=== PATIENT | male | born 1960 | race Caucasian/White ===

== ENCOUNTER 2016-04-03 09:17 | Emergency (ER) | payer MEDICARE, MEDICAID ==
[~2016-04-03] VITALS: Ht 182.9 cm; Wt 72.7 kg
[2016-04-03 09:19] VITALS: TEMP 100.4
[2016-04-03 10:23] LABS: MEAN CELL VOLUME 88 fl (80.0-100.0); MEAN CORPUSCULAR HGB CONC 34 g/dl (33.0-37.0); MEAN PLATELET VOLUME 11.8 fl (7.4-10.4); PLATELET COUNT 154 K/mm3 (130-400); RED BLOOD COUNT 3.53 M/mm3 (4.20-5.60); REDCELL DISTRIBUTION WIDTH-CV 13.7 % (11.5-14.5); WHITE BLOOD COUNT 10.3 K/mm3 (4.8-10.8)
[2016-04-03 10:25] LABS: ADD PATHOLOGY DIFF REVIEW NO; HEMATOCRIT 30.9 % (42.0-52.0); HEMOGLOBIN 10.6 g/dl (13.5-18.0); MEAN CORPUSCULAR HEMOGLOBIN 30 pg (27.0-31.0)
[2016-04-03 10:28] LABS: ADJUSTED CALCIUM 9.4 mg/dL (8.4-10.2); ALBUMIN 3.6 gm/dL (3.5-5.0); BILIRUBIN,TOTAL 0.9 mg/dL (0.0-1.0); CALCIUM 9.1 mg/dL (8.4-10.2); CREATININE, serum 0.79 mg/dL (0.66-1.25); POTASSIUM 3.7 mmol/L (3.4-5.0); TOTAL PROTEIN 6.8 gm/dL (6.4-8.2)
[2016-04-03 10:34] LABS: BAND 17 % (0-10); METAMYELOCYTE 1 % (0-0); NEUTROPHILS 70 % (42.0-75.2); PLATELET ESTIMATE NORMAL (NORMAL); TOTAL CELLS COUNTED 100
[2016-04-03 11:24] LABS: INFLUENZA B NEGATIVE
[2016-04-03] MEDS ORDERED: PROTONIX 40MG T40 MG PO (11:55)
[2016-04-03] MEDS ORDERED: PROZAC 20MG20 MG PO (11:55)
[2016-04-03] MEDS ORDERED: CALCIUM CITRATE1 TA4 PO (11:56)
[2016-04-03] MEDS ORDERED: ZANTAC 150MG T150 MG PO (11:58)
[2016-04-03] MEDS ORDERED: FERROUS SULFATE65 MG PO (11:59)
[2016-04-03] MEDS ORDERED: SEROQUEL 200MG200 MG PO (11:59)
[2016-04-03] MEDS ORDERED: COGENTIN 1MG1 MG/TAB PO (12:00)
[2016-04-03] MEDS ORDERED: REGLAN 5MG T5 MG/TAB (12:01)
[2016-04-03] MEDS ORDERED: SEROQUEL400 MG PO (12:02)
[2016-04-03] MEDS ORDERED: LIPITOR 80MG80 MG PO (12:03)
[2016-04-03] MEDS ORDERED: RISPERDAL 1M1 MG/TAB PO (12:04)
[2016-04-03] MEDS ORDERED: COLACE 100100 MG/CAP PO (12:05)
[2016-04-03 13:46] LABS: PH 6 (5-8); SQUAMOUS EPITHELIAL None Seen /hpf; URINE APPEARANCE Hazy; URINE BACTERIA Rare /hpf; URINE BILIRUBIN Negative (NEGATIVE); URINE BLOOD Negative (NEGATIVE); URINE COLOR Yellow; URINE GLUCOSE 1+ (NEGATIVE); URINE KETONE Trace (NEGATIVE); URINE UROBILINOGEN Negative (NEGATIVE)
[2016-04-03] MEDS ORDERED: AMOXICILLIN 8751 TAB PO (15:26)
[2016-04-03 16:03] VITALS: BP 104/70; PULSE 98
== END 2016-04-03 16:04 | disposition home or self-care (01) ==
LOC: COL.ER 09:17
PROVIDERS: Nurse Practitioner
DX: Z02.89 Encounter for other administrative examinations (principal)
CPT/HCPCS: J7030; L1830

== ENCOUNTER 2016-04-04 13:54 | Inpatient (IN) | payer MEDICARE, MEDICAID ==
[~2016-04-04] VITALS: Ht 182.9 cm; Wt 76.7 kg
[~2016-04-04 13:54] MED LIST: AMOXICILLIN 8751 TAB PO; CALCIUM CITRATE1 TA4 PO; COGENTIN 1MG1 MG/TAB PO; COLACE 100100 MG/CAP PO; FERROUS SULFATE65 MG PO; LIPITOR 80MG80 MG PO; PROTONIX 40MG T40 MG PO; PROZAC 20MG20 MG PO; REGLAN 5MG T5 MG/TAB; RISPERDAL 1M1 MG/TAB PO; SEROQUEL 200MG200 MG PO; SEROQUEL400 MG PO; ZANTAC 150MG T150 MG PO
[2016-04-04 14:33] LABS: BASO % 0.3 % (0.0-2.0); GRAN # 8.3 (1.4-6.5); GRAN % 75.2 % (42.2-75.2); LYMPH # 0.8 (1.2-3.4); LYMPH % 7.2 % (20.0-51.0); MEAN CELL VOLUME 89 fl (80.0-100.0); MEAN CORPUSCULAR HGB CONC 34 g/dl (33.0-37.0); MEAN PLATELET VOLUME 11.8 fl (7.4-10.4); MONO # 1.9 (0.1-0.6); MONO % 16.9 % (1.7-9.3); PLATELET COUNT 148 K/mm3 (130-400); RED BLOOD COUNT 3.11 M/mm3 (4.20-5.60); REDCELL DISTRIBUTION WIDTH-CV 13.6 % (11.5-14.5)
[2016-04-04 14:49] LABS: HEMATOCRIT 27.6 % (42.0-52.0); HEMOGLOBIN 9.5 g/dl (13.5-18.0); MEAN CORPUSCULAR HEMOGLOBIN 31 pg (27.0-31.0)
[2016-04-04 14:52] LABS: ALBUMIN 3.3 gm/dL (3.5-5.0); CALCIUM 8.4 mg/dL (8.4-10.2); CREATININE, serum 0.95 mg/dL (0.66-1.25); POTASSIUM 3.3 mmol/L (3.4-5.0); TOTAL PROTEIN 6.4 gm/dL (6.4-8.2)
[2016-04-04 15:22] LABS: INFLUENZA B NEGATIVE
[2016-04-04 19:11] LABS: C-REACTIVE PROTEIN 19.2 mg/dL (0.0-0.9)
[2016-04-04 19:22] LABS: ERYTHROCYTE SEDIMENTATION RATE 30 mm/hr (0-30)
[2016-04-04 20:00] VITALS: BP 132/90; PULSE 84; TEMP 99.8
[2016-04-04 21:41] VITALS: BP 128/78; PULSE 83; TEMP 99.9
[2016-04-04 21:54] LABS: PH 6 (5-8); SQUAMOUS EPITHELIAL None Seen /hpf; URINE APPEARANCE Clear; URINE BACTERIA None Seen /hpf; URINE BILIRUBIN Negative (NEGATIVE); URINE BLOOD Negative (NEGATIVE); URINE COLOR Yellow; URINE GLUCOSE Negative (NEGATIVE); URINE KETONE 1+ (NEGATIVE); URINE RBC 0-2 /hpf; URINE UROBILINOGEN Negative (NEGATIVE); URINE WBC 0-2 /hpf
[2016-04-05] VITALS: BP 134/84; PULSE 96; TEMP 99.2
[2016-04-05 04:00] VITALS: BP 140/83; PULSE 86; TEMP 100.4
[2016-04-05 06:09] LABS: BASO % 0.2 % (0.0-2.0); GRAN # 7.5 (1.4-6.5); GRAN % 75.6 % (42.2-75.2); LYMPH # 0.8 (1.2-3.4); LYMPH % 7.8 % (20.0-51.0); MEAN CELL VOLUME 89 fl (80.0-100.0); MEAN CORPUSCULAR HGB CONC 34 g/dl (33.0-37.0); MEAN PLATELET VOLUME 11.7 fl (7.4-10.4); MONO # 1.6 (0.1-0.6); PLATELET COUNT 150 K/mm3 (130-400); RED BLOOD COUNT 3.12 M/mm3 (4.20-5.60); REDCELL DISTRIBUTION WIDTH-CV 13.4 % (11.5-14.5)
[2016-04-05 06:16] LABS: HEMATOCRIT 27.8 % (42.0-52.0); HEMOGLOBIN 9.3 g/dl (13.5-18.0); MEAN CORPUSCULAR HEMOGLOBIN 30 pg (27.0-31.0)
[2016-04-05 06:25] LABS: CALCIUM 7.3 mg/dL (8.4-10.2); CREATININE, serum 0.62 mg/dL (0.66-1.25); POTASSIUM 3.1 mmol/L (3.4-5.0)
[2016-04-05 07:33] VITALS: BP 114/84; PULSE 84; TEMP 99.2
[2016-04-05 12:16] VITALS: BP 122/74; PULSE 88; TEMP 100.7
[2016-04-05 15:54] VITALS: BP 135/74; PULSE 93; TEMP 100.4
[2016-04-05 20:32] VITALS: BP 117/68; PULSE 96; TEMP 97.5
[2016-04-06] VITALS (7 sets, daily range): BP systolic 87–130; BP diastolic 52–94; PULSE 82–170; TEMP 99–102.2
[2016-04-06 04:40] LABS: BASO % 0.2 % (0.0-2.0); EOS % 0.4 % (0-4.0); GRAN # 5.6 (1.4-6.5); HEMATOCRIT 26.8 % (42.0-52.0); HEMOGLOBIN 9.2 g/dl (13.5-18.0); MEAN CELL VOLUME 88 fl (80.0-100.0); MEAN CORPUSCULAR HEMOGLOBIN 30 pg (27.0-31.0); MEAN CORPUSCULAR HGB CONC 34 g/dl (33.0-37.0); MEAN PLATELET VOLUME 11.4 fl (7.4-10.4); MONO # 1.5 (0.1-0.6); PLATELET COUNT 152 K/mm3 (130-400); RED BLOOD COUNT 3.05 M/mm3 (4.20-5.60); WHITE BLOOD COUNT 8.1 K/mm3 (4.8-10.8)
[2016-04-06 04:51] LABS: ADJUSTED CALCIUM 8.2 mg/dL (8.4-10.2); ALBUMIN 2.5 gm/dL (3.5-5.0); BILIRUBIN,TOTAL 0.9 mg/dL (0.0-1.0); CREATININE, serum 0.53 mg/dL (0.66-1.25)
[2016-04-06 04:57] LABS: VANCOMYCIN TROUGH 9.32 ug/mL (7.00-20.00)
[2016-04-06 04:59] LABS: POTASSIUM 2.7 mmol/L (3.4-5.0)
[2016-04-06 06:40] LABS: MAGNESIUM 1.6 mg/dL (1.6-2.3)
[2016-04-06 23:11] LABS: PH 6 (5-8); SQUAMOUS EPITHELIAL None Seen /hpf; URINE APPEARANCE Cloudy; URINE BACTERIA None Seen /hpf; URINE BILIRUBIN Negative (NEGATIVE); URINE BLOOD 3+ (NEGATIVE); URINE COLOR Red; URINE GLUCOSE Negative (NEGATIVE); URINE KETONE 1+ (NEGATIVE); URINE RBC >50 /hpf; URINE UROBILINOGEN Negative (NEGATIVE); URINE WBC 20-50 /hpf
[2016-04-07 00:40] VITALS: BP 116/58; PULSE 101; TEMP 99.8
[2016-04-07 03:27] VITALS: BP 132/65; PULSE 83; TEMP 97.6
[2016-04-07 07:53] LABS: BASO % 0.3 % (0.0-2.0); EOS # 0.1 (0.0-0.7); EOS % 1.4 % (0-4.0); GRAN # 4.5 (1.4-6.5); GRAN % 64.6 % (42.2-75.2); LYMPH # 1.1 (1.2-3.4); LYMPH % 15.2 % (20.0-51.0); MEAN CELL VOLUME 89 fl (80.0-100.0); MEAN CORPUSCULAR HGB CONC 33 g/dl (33.0-37.0); MEAN PLATELET VOLUME 11.6 fl (7.4-10.4); MONO # 1.3 (0.1-0.6); MONO % 18.1 % (1.7-9.3); PLATELET COUNT 208 K/mm3 (130-400); RED BLOOD COUNT 3.18 M/mm3 (4.20-5.60)
[2016-04-07 07:57] LABS: HEMATOCRIT 28.2 % (42.0-52.0); HEMOGLOBIN 9.4 g/dl (13.5-18.0); MEAN CORPUSCULAR HEMOGLOBIN 30 pg (27.0-31.0)
[2016-04-07 08:00] VITALS: BP 100/63; PULSE 19; TEMP 103
[2016-04-07 08:10] LABS: ADJUSTED CALCIUM 8.2 mg/dL (8.4-10.2); ALBUMIN 2.7 gm/dL (3.5-5.0); BILIRUBIN,TOTAL 0.8 mg/dL (0.0-1.0); CALCIUM 7.2 mg/dL (8.4-10.2); CREATININE, serum 0.7 mg/dL (0.66-1.25); MAGNESIUM 2.2 mg/dL (1.6-2.3); PHOSPHOROUS 2.1 mg/dL (2.5-4.5); POTASSIUM 3.5 mmol/L (3.4-5.0); TOTAL PROTEIN 5.6 gm/dL (6.4-8.2)
[2016-04-07 12:19] VITALS: BP 134/86; PULSE 100; TEMP 99.3
[2016-04-07 15:50] VITALS: BP 100/76; BP 106/76; PULSE 64; TEMP 98.7
[2016-04-07 20:44] VITALS: BP 126/78; PULSE 92; TEMP 98.5
[2016-04-08 00:37] VITALS: BP 139/75; PULSE 89; TEMP 99
[2016-04-08 04:20] VITALS: BP 123/90; PULSE 80; TEMP 98.3
[2016-04-08 07:09] LABS: MEAN CELL VOLUME 89 fl (80.0-100.0); MEAN CORPUSCULAR HGB CONC 33 g/dl (33.0-37.0); MEAN PLATELET VOLUME 11.1 fl (7.4-10.4); PLATELET COUNT 245 K/mm3 (130-400); RED BLOOD COUNT 3.05 M/mm3 (4.20-5.60); REDCELL DISTRIBUTION WIDTH-CV 13.2 % (11.5-14.5); WHITE BLOOD COUNT 6.7 K/mm3 (4.8-10.8)
[2016-04-08 07:26] LABS: CALCIUM 7.2 mg/dL (8.4-10.2); CREATININE, serum 0.6 mg/dL (0.66-1.25); POTASSIUM 3.5 mmol/L (3.4-5.0)
[2016-04-08 07:55] LABS: HEMATOCRIT 27.2 % (42.0-52.0); MEAN CORPUSCULAR HEMOGLOBIN 30 pg (27.0-31.0)
[2016-04-08 08:21] VITALS: BP 156/82; PULSE 90; TEMP 98
[2016-04-08 12:00] VITALS: BP 117/69; PULSE 74; TEMP 98.5
[2016-04-08] MEDS ORDERED: DOXYCYCLINE 10100 MG PO (14:19)
[2016-04-08] MEDS ORDERED: SEROQUEL 1100 MG/TAB PO ×2 (14:20→14:21)
[2016-04-08] MEDS ORDERED: RISPERDAL 0.5M0.5 MG PO (14:20)
[2016-04-08] MEDS ORDERED: TYLENOL 325MG325 MG PO (14:21)
[2016-04-08] MEDS ORDERED: SEROQUEL50 MG PO (14:21)
[2016-04-08] MEDS ORDERED: CEFTIN 250250 MG/TAB PO (14:25)
[2016-04-08] MEDS ORDERED: ASPIRIN 81M81 MG/TA2 PO (14:29)
== END 2016-04-08 15:45 | disposition home or self-care (01) | DRG 872 ==
LOC: COL.ER 13:54 → ICU 16:08 → COL.ER 16:08 → ICU 16:08 → MEDICAL 04-05 10:23 → ICU 04-06 05:19 → MEDICAL 04-06 13:50
PROVIDERS: Emergency Medicine; Internal Medicine; Nurse Practitioner Family
DX: A41.9 Sepsis, unspecified organism (principal); E87.1 Hypo-osmolality and hyponatremia; N39.0 Urinary tract infection, site not specified; L03.116 Cellulitis of left lower limb; M80.062A Age-related osteoporosis with current pathological fracture, left lower leg, initial encounter for fracture; F05 Delirium due to known physiological condition; R65.20 Severe sepsis without septic shock; E87.6 Hypokalemia; I48.91 Unspecified atrial fibrillation; F79 Unspecified intellectual disabilities; I10 Essential (primary) hypertension; F20.9 Schizophrenia, unspecified; F32.9 Major depressive disorder, single episode, unspecified
CPT/HCPCS: 90791-AI; 99223-AI; 99232-AI; 99233-AI; 99239; A4315; J0692; J0696; J1630; J1650; J1940; J1956; J3370; J3475; J3480; J7030; J7040; J7050; L1830

== ENCOUNTER 2016-10-22 08:49 | Day surgery (SDC) | payer MEDICARE, MEDICAID ==
[~2016-10-22] VITALS: Ht 188 cm; Wt 69.6 kg
[~2016-10-22 08:49] MED LIST changes: +ASPIRIN 81M81 MG/TA2 PO; +CEFTIN 250250 MG/TAB PO; +DOXYCYCLINE 10100 MG PO; +RISPERDAL 0.5M0.5 MG PO; +SEROQUEL 1100 MG/TAB PO; +SEROQUEL50 MG PO; +TYLENOL 325MG325 MG PO
[2016-10-22] MEDS ORDERED: PROLIA60 MG/ML SQ (09:19)
[2016-10-22 09:34] VITALS: BP 167/71; PULSE 85; TEMP 99.3
[2016-10-22 10:55] VITALS: BP 106/82; PULSE 61; TEMP 97.4
--- NOTE | 2016-10-22 10:55 | NUR ---
Pt. returned to [facility] via cart accompanied by roxane PADGETT. Pt. remained in cart rather than transferring to chair. Julio Sun RN and pt's sister in room. Pt. is drowsy but arouses to voice and answers questions. Pt. requests juice to drink, tolerating well. Denies pain/nausea/further needs. Call larsen within reach.
[2016-10-22 11:10] VITALS: BP 112/95; PULSE 61
--- NOTE | 2016-10-22 11:10 | NUR ---
Pt. continues to rest on cart with Julio Sun RN and sister at bedside. Pt. requests muffin to eat, tolerating PO intake well. Denies nausea/pain/needs. Call larsen within reach.
[2016-10-22 11:25] VITALS: BP 145/96; PULSE 61
--- NOTE | 2016-10-22 11:25 | NUR ---
Pt. continues to rest on cart with Julio Sun RN at bedside. Pt. states he is ready to go home. IV discontinued at this time with tip intact. Dressing applied, pt. tolerated procedure well. Pt. assisted to dress by Majo Cooper RN. Discharge instructions provided, DAYRON Kasper voiced understanding. DAYRON Kasper signed discharge instructions on pt's behalf. Pt. discharged via wheelchair, accompanied by this RN. Pt. assisted into vehicle by DAYRON Kasper.
[2016-10-22 15:00] VITALS: BP 125/83; PULSE 63
== END 2016-10-22 12:18 | disposition home or self-care (01) ==
LOC: SDCO 08:49
DX: K22.2 Esophageal obstruction (principal); D13.1 Benign neoplasm of stomach; K21.0 Gastro-esophageal reflux disease with esophagitis; K44.9 Diaphragmatic hernia without obstruction or gangrene; F20.9 Schizophrenia, unspecified; I10 Essential (primary) hypertension; I48.91 Unspecified atrial fibrillation; M81.0 Age-related osteoporosis without current pathological fracture; F79 Unspecified intellectual disabilities; F32.9 Major depressive disorder, single episode, unspecified; D64.9 Anemia, unspecified; F41.9 Anxiety disorder, unspecified
CPT/HCPCS: OP; C1726; J2250; J2704; J7030

== ENCOUNTER 2020-03-02 10:58 | Observation (INO) | payer MEDICARE, MEDICAID ==
[~2020-03-02] VITALS: Ht 180.3 cm; Wt 65.5 kg
[~2020-03-02 10:58] MED LIST changes: +PROLIA60 MG/ML SQ
[2020-03-02 12:01] LABS: BASO % 0.2 % (0.0-2.0); EOS % 0.2 % (0-4.0); GRAN # 3.9 (1.4-6.5); GRAN % 73.2 % (42.2-75.2); HEMATOCRIT 39.7 % (42.0-52.0); LYMPH % 18.3 % (20.0-51.0); MEAN CELL VOLUME 94 fl (80.0-100.0); MEAN CORPUSCULAR HEMOGLOBIN 31 pg (27.0-31.0); MEAN CORPUSCULAR HGB CONC 33 g/dl (33.0-37.0); MEAN PLATELET VOLUME 12.7 fl (7.4-10.4); MONO # 0.4 (0.1-0.6); MONO % 7.9 % (1.7-9.3); PLATELET COUNT 152 K/mm3 (130-400); RED BLOOD COUNT 4.22 M/mm3 (4.20-5.60); REDCELL DISTRIBUTION WIDTH-CV 13.1 % (11.5-14.5)
[2020-03-02 12:12] LABS: ALANINE AMINOTRANSFERASE 16 U/L (4-49); ALBUMIN 4.5 gm/dL (3.5-5.0); ALKALINE PHOSPHATASE 60 U/L (50-136); ANION GAP 9 mmol/L (7-16); AST,SGOT 19 U/L (15-37); BILIRUBIN,TOTAL 0.9 mg/dL (0.0-1.0); BLOOD UREA NITROGEN 35 mg/dL (9-20); CALCIUM 10.4 mg/dL (8.4-10.2); CARBON DIOXIDE 37 mmol/L (22-30); CHLORIDE 101 mmol/L (98-107); CREATININE, serum 0.97 (0.66-1.25); GLUCOSE 116 mg/dL (74-106); LIPASE 84 U/L (23-300); POTASSIUM 3.6 mmol/L (3.4-5.0); SODIUM 147 mmol/L (137-145); TOTAL PROTEIN 7.7 gm/dL (6.4-8.2)
[2020-03-02 12:33] LABS: TROPONIN-I < 0.012 ng/mL (0.000-0.035)
[2020-03-02] MEDS ORDERED: NAMENDA XR 21MG PO (16:15)
[2020-03-02] MEDS ORDERED: ARICEPT 5MG PO (16:15)
[2020-03-02] MEDS ORDERED: RISPERDAL4 MG PO ×2 (16:31→17:19)
[2020-03-02] MEDS ORDERED: KLONOPIN2 MG PO ×2 (16:31→17:25)
[2020-03-02] MEDS ORDERED: TYLENOL 325MG325 MG PO (16:33)
[2020-03-02] MEDS ORDERED: COLACE 100100 MG/CAP PO (16:34)
[2020-03-02] MEDS ORDERED: D3-5050000 IU PO (16:37)
[2020-03-02] MEDS ORDERED: PEPCID 20MG TAB20 MG PO (16:38)
[2020-03-02] MEDS ORDERED: REGLAN 5MG T5 MG/TAB PO (16:41)
[2020-03-02] MEDS ORDERED: LIPITOR 80MG80 MG PO (16:41)
[2020-03-02] MEDS ORDERED: BUSPAR10 MG PO (16:43)
[2020-03-02] MEDS ORDERED: CALCIUM CITRAT950 MG PO (16:44)
[2020-03-02] MEDS ORDERED: VOLTAREN GEL 1%1 TU TP (16:44)
[2020-03-02 16:51] VITALS: BP 104/81; PULSE 103; TEMP 98.2
[2020-03-02] MEDS ORDERED: KLONOPIN 1MG1 MG PO (17:17)
[2020-03-02] MEDS ORDERED: SEROQUEL 1100 MG/TAB PO (17:19)
--- NOTE | 2020-03-02 17:24 | NUR ---
PT RESTING IN BED. PT IS A CLIENT OF [employer] AND HAS MENTAL RETARDATION. BED ALARMS ON. PT WILL NOT PUT ON HOSPITAL GOWN. NOW IN OWN CLOTHES. TELE ON FOR A-FIB. REATTACHED LEADS. DRINKING H20 AT THIS TIME.
--- NOTE | 2020-03-02 19:00 | NUR ---
RECEIVED CHANGE OF SHIFT REPORT FROM DAY SHIFT NURSE.
--- NOTE | 2020-03-02 19:48 | NUR ---
H/O MENTAL HANDICAP, UNDERSTANDING LIMITED, NOT ABLE TO DETERMINE ORIENTATION AT THIS TIME. OBSERVED VOMITING AFTER DRINKING CLEAR LIQUIDS, TOLERATED ORAL MEDS OF PEPCID AND PROTONIX. OBSERVED DOES NOT FOLLOW COMMANDS TO NOT DRINK UNTIL NAUSEA/VOMITING STOP. TELE IN PLACE AT THIS TIME.
[2020-03-02 20:24] VITALS: BP 136/76; PULSE 86; TEMP 98
--- NOTE | 2020-03-02 20:35 | NUR ---
WHEN ASKED IF "TUMMY BETTER" PATIENT RESPONDED "BETTER" AND INDICATED HE WANTED A DRINK OF FLUIDS
[2020-03-03] VITALS (9 sets, daily range): BP systolic 86–118; BP diastolic 52–87; PULSE 41–94; TEMP 97.4–98.7
--- NOTE | 2020-03-03 00:54 | NUR ---
INFORMED ONCALL HOSP PROVIDERISAAC, OF PATIENT'S EMESIS EARLIER IN SHIFT, ORDERS ENTERED BY PROVIDER FOR PRN NAUSEA MEDS.
[2020-03-03 06:54] LABS: HEMOGLOBIN 11.7 g/dl (13.5-18.0); MEAN CELL VOLUME 97 fl (80.0-100.0); MEAN CORPUSCULAR HEMOGLOBIN 31 pg (27.0-31.0); MEAN CORPUSCULAR HGB CONC 32 g/dl (33.0-37.0); MEAN PLATELET VOLUME 13.1 fl (7.4-10.4); PLATELET COUNT 137 K/mm3 (130-400); RED BLOOD COUNT 3.77 M/mm3 (4.20-5.60); REDCELL DISTRIBUTION WIDTH-CV 13.2 % (11.5-14.5)
--- NOTE | 2020-03-03 06:59 | NUR ---
CHANGE OF SHIFT REPORT GIVEN TO DAY SHIFT NURSEQUIRINO.
[2020-03-03 07:02] LABS: HEMATOCRIT 36.4 % (42.0-52.0)
--- NOTE | 2020-03-03 07:03 | NUR ---
SCD SAFETY CONCERN DUE TO PATIENT'S H.O. OF MENTAL HANDICAPS. PATIENT TO BE CONSIDERED FOR ORAL ANTICOAGULANT THERAPY BY PROVIDERS.
[2020-03-03 07:12] LABS: CALCIUM 9.2 mg/dL (8.4-10.2); CREATININE, serum 0.87 (0.66-1.25); POTASSIUM 3.3 mmol/L (3.4-5.0)
--- NOTE | 2020-03-03 08:12 | NUR ---
CALLED ROSSI CORNEJO SISTER TO OBTAIN DPOA CONSENT ON CHART.
--- NOTE | 2020-03-03 08:50 | NUR ---
PT RESTING IN BED. PT IS UNABLE TO COMPREHEND THAT HE NEEDS PROCEEDURE AND CANNOT HAVE ANYTHING TO EAT OR DRINK. CONTINUALLY REMINDING HELPS. PT HAS HAD SOME PHLEGMY EMISIS THIS AM. PT TOOK AM PO MEDS WITH MILD EMESIS. NO PILLS ONLY PHLEGM.
--- NOTE | 2020-03-03 10:41 | NUR ---
The patient has a history of schizophrenia and mental retardation. LIAM attempted to contact the patient's sister, Anusha Das (ph#[phone]). SW left her voicemails. LIAM then contacted the patient's brother, Isaiah Santoyo (ph#[phone]). Isaiah reports that the patient lives at [facility] in a custodial. He states that plan is for the patient to return back there upon discharge. Isaiah states that his sister is the best person to talk to about this stuff though. The patient's PCP is Dr. Amy Bynum. LIAM then contacted the patient's welfare case worker at [facility]: Diane Baptiste (w.ph#[phone], personal cell.ph#[phone]). Diane confirms that the patient lives in their custodial and requires 24 hour care. LIAM requested the patient's guardianship. LIAM received the patient's guardianship paperwork and placed the document in the patient's chart. The patient's guardians are his sister (Anusha) and brother (Isaiah). Diane reports that they can provide transportation for him when ready to d/c and the best number to get ahold of her, if he is ready to d/c over the weekend is her personal cell. LIAM faxed updates to [facility] and will continue to follow.
--- NOTE | 2020-03-03 10:54 | NUR ---
IN TO SEE PATEINT. PLAN ON UPPER GI SCOPE LATER THIS AM. IV TO START IN ENDO. PT WILL NOT KEEP LINES IN.
--- NOTE | 2020-03-03 12:23 | NUR ---
PT TO ENDOSCOPY AT THIS TIME. WITH FLAKO PADGETT.
--- NOTE | 2020-03-03 12:54 | NUR ---
pt returned per bed with Jones PADGETT. Proceedure not done. Will return later this PM.
--- NOTE | 2020-03-03 14:46 | NUR ---
PT BACK TO ENDO FOR PROCEEDURE WITH MAYRA PADGETT PER BED.
--- NOTE | 2020-03-03 17:28 | NUR ---
SOME MEDS HELD OK PER KINZA CASTORENA.
--- NOTE | 2020-03-03 19:12 | NUR ---
RECEIVED CHANGE OF SHIFT REPORT FROM DAY SHIFT NURSE.
--- NOTE | 2020-03-03 19:42 | NUR ---
DOES NOT WAKE FROM SLEEP WHEN THIS NURSE ENTERED PATIENT'S ROOM. BED ALARM ON.
--- NOTE | 2020-03-03 20:04 | NUR ---
ATTEMPTED X2 TO WAKEN PATIENT TO TAKE ORAL POTASSIUM, PATIENT TOO DROWSY, BREATHING EVEN AND NONLABORED, COLOR NORMAL FOR PATIENT. WILL ATTEMPT AGAIN TO WAKE PATIENT TO TAKE ORAL POTASSIUM.
--- NOTE | 2020-03-03 20:34 | NUR ---
PATIENT STILL VERY DROWSY, BREATHING NONLABORED, SHALLOW AND EVEN. OBSERVED BOTH EYES OPENED DURING BP READING BUT PATIENT WENT BACK TO SLEEP. UNABLE TO GET PATIENT TO TAKE ORAL MEDS AT THIS TIME DUE TO LETHARGY.
--- NOTE | 2020-03-03 21:57 | NUR ---
CONTACT BRETT CARR OF PATIENT CURRENT STATUS/VS WITH ORDERS TO CHANGE K+ DOSING TO IV ROUTE AT THIS TIME. RESP IS NONLABORED AND EVEN BUT SHALLOW, DOES NOT WAKE WITH SHAKING OR PATIENT'S NAME CALLED OUT LOUDLY.
[2020-03-04 00:14] VITALS: BP 96/53; PULSE 61; TEMP 98.9
[2020-03-04 04:15] VITALS: BP 95/66; PULSE 63; TEMP 97.8
--- NOTE | 2020-03-04 07:21 | NUR ---
CHANGE OF SHIFT REPORT GIVEN TO DAY SHIFT NURSEKAPIL.
--- NOTE | 2020-03-04 08:00 | NUR ---
Patient in bed resting. Denies pain at this time. Denies needs at this time.
[2020-03-04 08:02] LABS: BASO % 0.8 % (0.0-2.0); EOS # 0.2 (0.0-0.7); EOS % 4.1 % (0-4.0); GRAN # 2.2 (1.4-6.5); GRAN % 54.3 % (42.2-75.2); HEMOGLOBIN 11.4 g/dl (13.5-18.0); LYMPH # 1.2 (1.2-3.4); LYMPH % 30.9 % (20.0-51.0); MEAN CELL VOLUME 94 fl (80.0-100.0); MEAN CORPUSCULAR HEMOGLOBIN 30 pg (27.0-31.0); MEAN CORPUSCULAR HGB CONC 32 g/dl (33.0-37.0); MEAN PLATELET VOLUME 13.4 fl (7.4-10.4); MONO # 0.4 (0.1-0.6); MONO % 9.6 % (1.7-9.3); PLATELET COUNT 123 K/mm3 (130-400); RED BLOOD COUNT 3.76 M/mm3 (4.20-5.60); REDCELL DISTRIBUTION WIDTH-CV 12.9 % (11.5-14.5)
[2020-03-04 08:18] LABS: CALCIUM 8.5 mg/dL (8.4-10.2); CREATININE, serum 0.73 (0.66-1.25); HEMATOCRIT 35.4 % (42.0-52.0); MAGNESIUM 1.9 mg/dL (1.6-2.3); POTASSIUM 3.8 mmol/L (3.4-5.0)
[2020-03-04 09:14] VITALS: BP 91/52; PULSE 63; TEMP 97.4
[2020-03-04] MEDS ORDERED: ASPIRIN 81M81 MG/TA2 PO (10:01)
[2020-03-04 11:58] VITALS: BP 91/52; PULSE 63; TEMP 97.4
--- NOTE | 2020-03-04 12:28 | NUR ---
LIAM informed of discharge for client and setting up transportation to [facility]. [facility] and left [facility]. Called Sallie about transport and informed that Roxy the Nurse is the transport person. Called and left a message for Roxy. Roxy arrived to picker and sorter load and unload client at 12:34 pm. Discharge packet send with patient.
--- NOTE | 2020-03-04 12:34 | NUR ---
Patient discharging to [facility], int to right hand discontinued; catheter tip intact. Denies needs at this time.
== END 2020-03-04 12:35 ==
LOC: COL.ER 10:58 → SURG 14:03
PROVIDERS: Emergency Medicine; Physician Assistant; ADMIT Internal Medicine
DX: I48.91 Unspecified atrial fibrillation (principal); I50.20 Unspecified systolic (congestive) heart failure; I95.9 Hypotension, unspecified; R00.1 Bradycardia, unspecified; K20.80 Other esophagitis without bleeding; E87.6 Hypokalemia; E78.5 Hyperlipidemia, unspecified
CPT/HCPCS: OP; 99232-AI; G0378; J1200; J1650; J2060; J2405; J2704; J2765; J3480; J7030; Q9967

== ENCOUNTER 2020-07-25 08:55 | Day surgery (SDC) | payer MEDICARE, MEDICAID ==
[~2020-07-25] VITALS: Ht 180.3 cm; Wt 68.6 kg
[~2020-07-25 08:55] MED LIST changes: +ARICEPT 5MG PO; +BUSPAR10 MG PO; +CALCIUM CITRAT950 MG PO; +D3-5050000 IU PO; +KLONOPIN 1MG1 MG PO; +KLONOPIN2 MG PO; +NAMENDA XR 21MG PO; +PEPCID 20MG TAB20 MG PO; +REGLAN 5MG T5 MG/TAB PO; +RISPERDAL4 MG PO; +VOLTAREN GEL 1%1 TU TP
[2020-07-25] MEDS ORDERED: PEPCID 20MG TAB20 MG PO (10:38)
[2020-07-25 10:50] VITALS: BP 136/89; PULSE 88; TEMP 98.2
--- NOTE | 2020-07-25 10:50 | NUR ---
Pt returned via cart to [facility]. Pt agitated and yelling out wanting to "get the fuck out of here". Caregiver present and frequently redirecting patient. Pt was verbally agressive and combative. Would not remain in recliner/chair to obtain vitals. Pt was given water and pepsi as he kept hollaring out that he wanted a pop. Tolerated without n/v. Dr Savage in to visit with caregiver,Roxy and patient post procedure. Pt removed blood pressure cuff and sp02 monitor. Discharge teaching and packet given to Roxy who denied questions and pt already dressing as this RN was trying to remove his IV. Catheter tip intact and pressure dressing applied. Pt taken via wheelchair to private vehicle for dc home with Roxy to drive.
== END 2020-07-25 11:30 | disposition home or self-care (01) ==
LOC: SDCO 08:55
DX: K22.2 Esophageal obstruction (principal); K21.00 Gastro-esophageal reflux disease with esophagitis, without bleeding; K25.9 Gastric ulcer, unspecified as acute or chronic, without hemorrhage or perforation; K31.89 Other diseases of stomach and duodenum; K44.9 Diaphragmatic hernia without obstruction or gangrene; E78.5 Hyperlipidemia, unspecified; M81.0 Age-related osteoporosis without current pathological fracture; I10 Essential (primary) hypertension; I48.91 Unspecified atrial fibrillation; G43.909 Migraine, unspecified, not intractable, without status migrainosus; F17.210 Nicotine dependence, cigarettes, uncomplicated; F32.9 Major depressive disorder, single episode, unspecified; F70 Mild intellectual disabilities; F20.9 Schizophrenia, unspecified; Z79.899 Other long term (current) drug therapy
CPT/HCPCS: C1726; J2704; J7030

== ENCOUNTER 2020-10-17 10:58 | Observation (INO) | payer MEDICARE, MEDICAID ==
[~2020-10-17] VITALS: Ht 370.8 cm; Wt 68.2 kg
[2020-10-17 12:25] LABS: BASO % 0.2 % (0.0-2.0); EOS # 0.1 (0.0-0.7); EOS % 0.7 % (0-4.0); GRAN # 7.8 (1.4-6.5); GRAN % 79.9 % (42.2-75.2); HEMATOCRIT 37.6 % (42.0-52.0); HEMOGLOBIN 12.1 g/dl (13.5-18.0); LYMPH # 1.2 (1.2-3.4); LYMPH % 11.9 % (20.0-51.0); MEAN CELL VOLUME 96 fl (80.0-100.0); MEAN CORPUSCULAR HEMOGLOBIN 31 pg (27.0-31.0); MEAN CORPUSCULAR HGB CONC 32 g/dl (33.0-37.0); MEAN PLATELET VOLUME 12.6 fl (7.4-10.4); MONO # 0.7 (0.1-0.6); PLATELET COUNT 165 K/mm3 (130-400); RED BLOOD COUNT 3.93 M/mm3 (4.20-5.60); REDCELL DISTRIBUTION WIDTH-CV 14.1 % (11.5-14.5)
[2020-10-17 12:40] LABS: ALBUMIN 4.3 gm/dL (3.5-5.0); BILIRUBIN,TOTAL 0.6 mg/dL (0.0-1.0); CALCIUM 9.9 mg/dL (8.4-10.2); CREATININE, serum 0.86 (0.66-1.25); TOTAL PROTEIN 7.2 gm/dL (6.4-8.2)
[2020-10-17 12:42] LABS: C-REACTIVE PROTEIN 0.5 mg/dL (0.0-0.9)
[2020-10-17 12:51] LABS: COLLECTION METHOD CLEAN CATCH
[2020-10-17 13:08] LABS: MUCOUS Present /lpf; PH 5 (5-8); SQUAMOUS EPITHELIAL None Seen /hpf; URINE APPEARANCE Hazy; URINE BACTERIA None Seen /hpf; URINE BILIRUBIN Negative (NEGATIVE); URINE BLOOD Negative (NEGATIVE); URINE COLOR Yellow; URINE GLUCOSE Negative (NEGATIVE); URINE KETONE 2+ (NEGATIVE); URINE LEUKOCYTE ESTERASE Negative (NEGATIVE); URINE NITRATE Negative (NEGATIVE); URINE PROTEIN(semi-quant) 1+ (NEGATIVE); URINE RBC 0-2 /hpf
[2020-10-17 19:30] VITALS: BP 126/73; PULSE 70; TEMP 98
--- NOTE | 2020-10-17 20:00 | NUR ---
Initial assessment done- did get report from OR, pt had EGD this afternnon to remove fluid bolus-, going to stay the night for observation per Love PASTE MIXING SUPERVISOR- o2 at 4L/nc with sats 95-96%. Pt is cooperative, Has mental retardation so unable to answer questions about hx/health. Trying to get up- did assist to bathroom, unsteady on feet-voiding well. VSS
--- NOTE | 2020-10-17 22:30 | NUR ---
Pt did not have o2 on--O2 sat 78% on room air,, put o2 back on at 4L/nc- immediately sats up to 94%. Melissa fong aware,,melissa did states that she did do the med rec tonight on this patient, pt sleeping -- talked with melissa about meds she ordered-- she did say that we can hold tonight meds--pt very drowsy
[2020-10-17 23:13] VITALS: BP 128/70; PULSE 105; TEMP 100
--- NOTE | 2020-10-18 02:39 | NUR ---
Love LISA notified of troponin level 0.07--she will put in orders
[2020-10-18 03:44] VITALS: BP 88/54; PULSE 63; TEMP 98.5
--- NOTE | 2020-10-18 04:53 | NUR ---
Love called with B/P 88/54,, order for 500cc NS IV bolus and then IV FLuids at 100cc/hr. Pt has been resting well.
[2020-10-18 06:15] VITALS: BP 96/52; PULSE 66
[2020-10-18 07:08] LABS: BASO % 0.2 % (0.0-2.0); EOS % 0.1 % (0-4.0); GRAN # 10.3 (1.4-6.5); GRAN % 84.8 % (42.2-75.2); LYMPH # 0.8 (1.2-3.4); LYMPH % 6.5 % (20.0-51.0); MEAN CELL VOLUME 94 fl (80.0-100.0); MEAN CORPUSCULAR HEMOGLOBIN 31 pg (27.0-31.0); MEAN CORPUSCULAR HGB CONC 32 g/dl (33.0-37.0); MEAN PLATELET VOLUME 12.6 fl (7.4-10.4); MONO % 7.9 % (1.7-9.3); PLATELET COUNT 145 K/mm3 (130-400); REDCELL DISTRIBUTION WIDTH-CV 14.2 % (11.5-14.5)
[2020-10-18 07:14] LABS: CALCIUM 8.6 mg/dL (8.4-10.2); CREATININE, serum 0.84 (0.66-1.25); POTASSIUM 3.8 mmol/L (3.4-5.0)
--- NOTE | 2020-10-18 08:20 | NUR ---
Pt awake upon entry. no C/O pain at this time. Shift assessment completed, ordered Pt's breakfast, Pt not able to do so on own. Left Pt call light in reach, bed in lowest position.
[2020-10-18 08:27] VITALS: BP 113/68; PULSE 60; TEMP 98.5
[2020-10-18 12:25] VITALS: BP 104/83; PULSE 71
--- NOTE | 2020-10-18 14:57 | NUR ---
special delivery worker contacted patient's guardian/sister, Anusha Dawson [phone], and confirmed that patient resides in the [facility] on [facility] and will return there upon discharge. Worker discussed the possibility of obtaining a DNR status with Dr Hughes and with Anusha. Anusha will reach out to the trial attorney that assisted with patient's guardianship and see if this is a possibility to puruse DNR. Worker requested copy of guardianship from [facility].
[2020-10-18 16:01] VITALS: BP 93/73; PULSE 89
[2020-10-18 20:50] VITALS: BP 116/75; PULSE 66; TEMP 98.4
--- NOTE | 2020-10-18 22:42 | NUR ---
PT RESTING IN BED. EVENING MEDICATIONS GIVEN. PT STATES HE WANT TO GO HOME REPEATEDLY, INFORMED PT HE WOULD BE GOING HOME TOMORROW. WILL CONINTUE TO MONITOR.
[2020-10-19 00:17] VITALS: BP 105/55; PULSE 61; TEMP 98
[2020-10-19 04:31] VITALS: BP 125/75; PULSE 64; TEMP 98.1
--- NOTE | 2020-10-19 07:05 | NUR ---
Report from DAYRON Munoz. Pt resting in bed with eyes closed, resp even and unlabored.
--- NOTE | 2020-10-19 07:36 | NUR ---
Worker placed patient's guardianship/conservatorship document on the chart.
--- NOTE | 2020-10-19 08:30 | NUR ---
Assessment complete. Pt resting in bed, awake and alert, does not answer questions. Pt has been up to bathroom several times this morning, steady gait. No IV site at this time. Physical assessment unremarkable. Call light in reach. Bed alarm on.
[2020-10-19 08:37] VITALS: BP 111/63; BP 117/101; PULSE 62; TEMP 97.7
[2020-10-19] MEDS ORDERED: AUGMENTIN 400100 ML PO (10:11)
--- NOTE | 2020-10-19 11:05 | NUR ---
Discharge instructions reviewed with pt's sister regarding follow-up appointments and new medication. Pt's sister verbalizes understanding. Pt discharged home, ambulates out of facility accompanied by this nurse and pt's sister.
--- NOTE | 2020-10-19 11:53 | NUR ---
Patient is discharged back to [facility] home today. Daughter, Anusha was contacted and she will transport patient home today.
== END 2020-10-19 11:10 | disposition home or self-care (01) ==
LOC: COL.ER 10:58 → MEDICAL 19:07
PROVIDERS: Nurse Practitioner; Student in an Organized Health Care Education/Training Program; ADMIT Internal Medicine
DX: T18.128A Food in esophagus causing other injury, initial encounter (principal); K22.2 Esophageal obstruction; K22.10 Ulcer of esophagus without bleeding; K21.00 Gastro-esophageal reflux disease with esophagitis, without bleeding; K59.00 Constipation, unspecified; K44.9 Diaphragmatic hernia without obstruction or gangrene; J96.01 Acute respiratory failure with hypoxia; I21.4 Non-ST elevation (NSTEMI) myocardial infarction; I50.20 Unspecified systolic (congestive) heart failure; R00.1 Bradycardia, unspecified; F79 Unspecified intellectual disabilities; F32.9 Major depressive disorder, single episode, unspecified; F20.9 Schizophrenia, unspecified; F03.90 Unspecified dementia, unspecified severity, without behavioral disturbance, psychotic disturbance, mood disturbance, and anxiety; Z79.899 Other long term (current) drug therapy
CPT/HCPCS: G0378; G0379; J1650; J2060; J2405; J2543; J2704; J7030; Q9967

== ENCOUNTER 2020-11-21 11:00 | Outpatient (RCR) | payer MEDICARE, MEDICAID ==
[~2020-11-21 11:00] MED LIST changes: +AUGMENTIN 400100 ML PO
== END 2021-02-16 | disposition home or self-care (01) ==
LOC: WSST
DX: T17.320 Food in larynx causing asphyxiation (principal)